=== PATIENT | female | born 1980 | race Caucasian/White ===

== ENCOUNTER 2016-11-08 11:21 | Emergency (ER) | payer BC ==
[2016-11-08 11:27] VITALS: BP 103/69
--- NOTE | 2016-11-08 12:04 | UC ---
Ear Complaint HPI - HPI Summary HPI Summary: awoke with tender swollen glands on left side of her neck--not otherwise ill-- no fevers, chills, weight loss or night sweats, - History of Current Complaint Chief Complaint: UCSkin Stated Complaint: SOFT TISSUE COMPLAINT Time Seen by Provider: 11/08/16 11:44 Hx Obtained From: Patient Hx Last Menstrual Period: iud ?: No Onset/Duration: Sudden Onset, Lasting Days - 1, Still Present Severity Initially: Moderate Severity Currently: Moderate Pain Intensity: 6 Pain Scale Used: 0-10 Numeric Aggravating Factors: Nothing Alleviating Factors: Other (Noted In Comments) - Allergies/Home Medications Allergies/Adverse Reactions: Allergies Allergy/AdvReac Type Severity Reaction Status Date / Time No Known Allergies Allergy Verified 08/18/14 07:47 PMH/Surg Hx/FS Hx/Imm Hx Previously Healthy: Yes - Surgical History Surgical History: None - Family History Known Family History: Positive: None - Social History Occupation: Student Lives: With Family Alcohol Use: Weekly Substance Use Type: None Smoking Status (MU): Never Smoked Tobacco - Immunization History Most Recent Influenza Vaccination: 03/10/13 Most Recent Tetanus Shot: 03/10/13 Most Recent Pneumonia Vaccination: never Review of Systems Constitutional: Negative Skin: Negative Eyes: Negative ENT: Negative Respiratory: Negative Cardiovascular: Negative Gastrointestinal: Negative Genitourinary: Negative Motor: Negative Neurovascular: Negative Musculoskeletal: Negative Neurological: Negative Psychological: Negative All Other Systems Reviewed And Are Negative: Yes Physical Exam Triage Information Reviewed: Yes Appearance: Well-Appearing, No Pain Distress, Well-Nourished Vital Signs: Initial Vital Signs Temp 98.7 F 11/08/16 11:24 Pulse 91 11/08/16 11:24 Resp 18 11/08/16 11:24 BP 103/69 11/08/16 11:24 Pulse Ox 98 11/08/16 11:24 Vital Signs Reviewed: Yes Eye Exam: Normal Eyes: Positive: Conjunctiva Clear ENT Exam: Normal ENT: Positive: Normal ENT inspection, Hearing grossly normal, Pharynx normal, TMs normal. Negative: Nasal congestion, Nasal drainage, Tonsillar swelling, Tonsillar exudate, Trismus, Muffled/hoarse voice Dental Exam: Normal Neck: Positive: Supple, Tenderness @ - 3 swollen glands left side of neck, Enlarged Nodes @ - 3 swollen glands left side of neck Ear Complaint Course/Dx - Course Course Of Treatment: amoxicillin, increase fluids, follow with PCP - Differential Dx/Diagnosis Differential Diagnosis/HQI/PQRI: Cellulitis, Otitis Externa, Otitis Media, Pharyngitis, Trauma Provider Diagnoses: Lymphadenopathy, left cervical Discharge - Discharge Plan Condition: Stable Disposition: HOME Prescriptions: Amoxicillin (*) [Amoxicillin 875 MG (*)] 875 mg PO BID #20 tab Patient Education Materials: Lymphadenopathy (ED), Amoxicillin (By mouth) Referrals: No Primary Care Phys,NOPCP [Primary Care Provider] - Ashley Fernandez MD [Medical Doctor] - 12/06/16
== END 2016-11-08 12:09 | disposition home or self-care (01) ==
LOC: UCEAST 11:21
DX: R59.1 Generalized enlarged lymph nodes (principal)
CPT/HCPCS: 99212; G0463

== ENCOUNTER 2018-08-05 08:33 | Emergency (ER) | payer BC ==
[2018-08-05 08:52] VITALS: BP 126/88
[2018-08-05] MEDS ORDERED: Tetan/Diph/Pertus SYR(Tdap)* 0.5 ML SYR(BOOSTRIX) use SYR IM ONE (09:01)
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
== END 2018-08-05 09:28 | disposition home or self-care (01) ==
LOC: UCEAST 08:33
DX: S60.470A Other superficial bite of right index finger, initial encounter (principal); S60.472A Other superficial bite of right middle finger, initial encounter; Z23 Encounter for immunization; W55.01XA Bitten by cat, initial encounter; Y92.9 Unspecified place or not applicable
CPT/HCPCS: 73140; 90471; 90715; 99212; G0463

== ENCOUNTER 2019-06-30 09:36 | Emergency (ER) | payer BC ==
[2019-06-30 09:46] VITALS: BP 127/81
[2019-06-30 10:40] LABS: Influenza A Molecular Negative (Negative); Influenza B Molecular Negative (Negative)
--- NOTE | 2019-06-30 10:50 | UC ---
Respiratory Complaint HPI - HPI Summary HPI Summary: PATIENT PRESENTS WITH 4 DAYS OF COUGH. NO OTHER SYMPTOMS HOWEVER DAUGHTER SWABBED POSITIVE FOR INFLUENZA A TODAY. 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 UP TO DATE FLU SHOT. - History of Current Complaint Chief Complaint: UCRespiratory Stated Complaint: SORE THROAT COUGH Time Seen by Provider: 06/30/19 09:50 Hx Obtained From: Patient Hx Last Menstrual Period: IUD Onset/Duration: Gradual Onset, Lasting Days, Still Present Severity Initially: Mild Severity Currently: Mild Pain Intensity: 0 Pain Scale Used: 0-10 Numeric Character: Cough: Nonproductive Aggravating Factors: Nothing Alleviating Factors: Nothing Associated Signs And Symptoms: Negative: Dyspnea, Fever, Chills, Wheezing, URI, Nasal Congestion - Allergies/Home Medications Allergies/Adverse Reactions: Allergies Allergy/AdvReac Type Severity Reaction Status Date / Time No Known Allergies Allergy Verified 06/30/19 09:46 Home Medications: Home Medications Ibuprofen TAB* [Advil TAB*] 200 mg PO Q6H PRN 06/30/19 [History Confirmed ] PMH/Surg Hx/FS Hx/Imm Hx Previously Healthy: Yes - Surgical History Surgical History: None - Family History Known Family History: Positive: None - Social History Alcohol Use: Rare Substance Use Type: None Smoking Status (MU): Never Smoked Tobacco - Immunization History Most Recent Influenza Vaccination: 03/10/13 Most Recent Tetanus Shot: 03/10/13 Most Recent Pneumonia Vaccination: never Review of Systems All Other Systems Reviewed And Are Negative: Yes Constitutional: Positive: Negative ENT: Positive: Negative Respiratory: Positive: Cough Cardiovascular: Positive: Negative Gastrointestinal: Positive: Negative Musculoskeletal: Positive: Negative Neurological: Positive: Negative Physical Exam Triage Information Reviewed: Yes Appearance: Well-Appearing, No Pain Distress, Well-Nourished Vital Signs: Initial Vital Signs Temp 98.5 F 06/30/19 09:43 Pulse 95 06/30/19 09:43 Resp 16 06/30/19 09:43 BP 127/81 06/30/19 09:43 Pulse Ox 96 06/30/19 09:43 Laboratory Tests 06/30/19 09:55 Influenza A (Rapid) Negative Influenza B (Rapid) Negative Vital Signs Reviewed: Yes Eyes: Positive: Conjunctiva Clear ENT: Positive: Hearing grossly normal, Pharynx normal, TMs normal Neck: Positive: Supple, Nontender, No Lymphadenopathy Respiratory Exam: Normal Cardiovascular Exam: Normal Abdomen Description: Positive: Soft Musculoskeletal: Positive: No Edema Neurological: Positive: Alert Psychological: Positive: Age Appropriate Behavior Skin: Negative: Rashes Respiratory Course/Dx - Course Course Of Treatment: FLU SWAB NEGATIVE. 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 - Differential Dx/Diagnosis Provider Diagnosis: Cough in adult Discharge ED - Sign-Out/Discharge Documenting (check all that apply): Patient Departure All imaging exams completed and their final reports reviewed: No Studies - Discharge Plan Condition: Stable Disposition: HOME Prescriptions: Oseltamivir CAP* [Tamiflu CAP*] 75 mg PO DAILY #10 cap Patient Education Materials: Acute Cough (ED) Referrals: Ashley Fernandez MD [Primary Care Provider] - If Needed Additional Instructions: FLU SWAB NEGATIVE. GIVEN YOUR DAUGHTER IS POSITIVE FOR INFLUENZA A AND YOUR EMPLOYMENT IN HEALTHCARE WILL GO AHEAD AND GIVE TAMIFLU PROPHYLAXIS. REST, HYDRATE, OTC MEDS NEEDED. - Billing Disposition and Condition Condition: STABLE Disposition: Home
== END 2019-06-30 10:28 | disposition home or self-care (01) ==
LOC: UCEAST 09:36
DX: R05 Cough (principal)
CPT/HCPCS: 99212; G0463

== ENCOUNTER 2019-07-02 11:39 | Emergency (ER) | payer BC ==
[2019-07-02 12:08] VITALS: BP 115/75
[2019-07-02 12:48] LABS: Influenza A Molecular Negative (Negative); Influenza B Molecular Negative (Negative)
--- NOTE | 2019-07-02 13:21 | UC ---
FLU HPI - HPI Summary HPI Summary: 38-year-old woman comes in with influenza-like symptoms. Been going on for about 6 days she's had a fever recently. She has taken [id number] medications which do help with the symptoms. She reports that she's had increasing chest congestion and in the past she's gotten pneumonia under similar circumstances. Her daughter and have influenza. She's on Tamiflu prophylactically. - History of Current Complaint Chief Complaint: UCGeneralIllness Stated Complaint: RESP COMPLAINT Time Seen by Provider: 07/02/19 13:07 Hx Last Menstrual Period: doesn't get d/t IUD Pain Intensity: 1 - Allergy/Home Medications Allergies/Adverse Reactions: Allergies Allergy/AdvReac Type Severity Reaction Status Date / Time No Known Allergies Allergy Verified 07/02/19 12:08 Home Medications: Home Medications Levonorgestrel (Iud) [Mirena IUD] 20 mcg IU 07/02/19 [History] Oseltamivir CAP* [Tamiflu CAP*] 75 mg PO DAILY 07/02/19 [History Confirmed 07/02] PMH/Surg Hx/FS Hx/Imm Hx Previously Healthy: Yes - Surgical History Surgical History: None - Family History Known Family History: Positive: None - Social History Alcohol Use: Occasionally Substance Use Type: None Smoking Status (MU): Never Smoked Tobacco - Immunization History Most Recent Influenza Vaccination: 03/10/13 Most Recent Tetanus Shot: 03/10/13 Most Recent Pneumonia Vaccination: never Review of Systems All Other Systems Reviewed And Are Negative: Yes Constitutional: Positive: Fever, Other - SEE HPI Skin: Positive: Negative Eyes: Positive: Negative ENT: Positive: Sore Throat, Nasal Discharge, Sinus Congestion Respiratory: Positive: Cough, Other - SEE HPI Cardiovascular: Positive: Negative Gastrointestinal: Positive: Negative Motor: Positive: Negative Neurovascular: Positive: Negative Musculoskeletal: Positive: Negative Neurological: Positive: Negative Psychological: Positive: Negative Is Patient Immunocompromised?: No Physical Exam Triage Information Reviewed: Yes Appearance: No Pain Distress, Well-Nourished, Ill-Appearing - MILD Vital Signs: Initial Vital Signs Temp 99 F 07/02/19 12:04 Pulse 103 07/02/19 12:04 Resp 16 07/02/19 12:04 BP 115/75 07/02/19 12:04 Pulse Ox 99 07/02/19 12:04 Vital Signs Reviewed: Yes Eye Exam: Normal Eyes: Positive: Conjunctiva Clear ENT: Positive: Pharyngeal erythema, Nasal congestion, Nasal drainage, TMs normal Neck: Positive: Supple Respiratory: Positive: No respiratory distress, Rhonchi Cardiovascular: Positive: RRR Musculoskeletal: Positive: Strength Intact, ROM Intact Neurological: Positive: Alert, Muscle Tone Normal Psychological: Positive: Normal Response To Family, Age Appropriate Behavior Skin Exam: Normal Flu Course/Dx - Course Course Of Treatment: Patient's and daughter have influenza. Patient tested negative for influenza here in clinic. She reports that she often gets pneumonia when she's been ill as long and would like to have an antibiotic prescription to be used if she does not improve. Otherwise she'll treat symptomatically and get reevaluated if worse or any questions or concerns. - Differential Dx/Diagnosis Provider Diagnosis: Bronchitis Discharge ED - Sign-Out/Discharge Documenting (check all that apply): Patient Departure All imaging exams completed and their final reports reviewed: No Studies - Discharge Plan Condition: Stable Disposition: HOME Prescriptions: Azithromyxin MAYA (NF) [Z-Maya (Zithromax) 250 mg tabs #6] 2 tab PO .TODAY, THEN 1 DAILY #6 tab Patient Education Materials: Acute Bronchitis (ED) Forms: *Work Release Referrals: Ashley Fernandez MD [Primary Care Provider] - Additional Instructions: FOLLOW UP WITH YOUR DOCTOR IF NOT COMPLETELY IMPROVED. GET REEVALUATED SOONER IF NOT IMPROVED OR WORSE OR ANY QUESTIONS OR CONCERNS. - Billing Disposition and Condition Condition: STABLE Disposition: Home
== END 2019-07-02 13:29 | disposition home or self-care (01) ==
LOC: UCEAST 11:39
DX: J40 Bronchitis, not specified as acute or chronic (principal); J02.9 Acute pharyngitis, unspecified
CPT/HCPCS: 99212; G0463